=== PATIENT | female | born 1965 | race Caucasian/White ===

== ENCOUNTER → 2017-02-24 | Outpatient (CLI) | payer OTHER | LOC: FIMAGING 13:52 | PROVIDERS: ATTEND Family Medicine | DX: Z12.31 Encounter for screening mammogram for malignant neoplasm of breast (principal) | CPT/HCPCS: G0202 ==

== ENCOUNTER → 2017-12-29 | Outpatient (CLI) | payer OTHER | LOC: FIMAGING 15:02 | PROVIDERS: ATTEND Obstetrics & Gynecology Gynecology | DX: T83.39XA Other mechanical complication of intrauterine contraceptive device, initial encounter (principal); D25.0 Submucous leiomyoma of uterus; N83.201 Unspecified ovarian cyst, right side; N83.02 Follicular cyst of left ovary ==

== ENCOUNTER 2018-02-08 05:40 | Observation (INO) | payer OTHER ==
[2018-02-08] MEDS ORDERED: LIDOCAINE 1% 2 ML INJ ID PRN (05:42)
[2018-02-08] MEDS ORDERED: LR 1,000 ML IV ONE (05:42)
[2018-02-08] MEDS ORDERED: ceFAZolin 2 GM/DEXTROSE 100 ML IV ONE (06:00)
[2018-02-08] MEDS ORDERED: VASOPRESSIN 20 UNIT/ML VIAL ONE (06:51)
[2018-02-08] MEDS ORDERED: morphINE PF 5 MG/10 ML INJ ONE (07:00)
[2018-02-08] MEDS ORDERED: fentaNYL 100 MCG/2 ML INJ ONE ×3 (07:01→10:06)
[2018-02-08] MEDS ORDERED: DEXAMETHASONE 4 MG/ML VIAL ONE (07:02)
[2018-02-08] MEDS ORDERED: ONDANSETRON 4 MG/2 ML VIAL ONE ×2 (07:02→07:09)
[2018-02-08] MEDS ORDERED: PROPOFOL 200 MG/20 ML VIAL ONE (07:02)
[2018-02-08] MEDS ORDERED: LIDOCAINE 2% 5 ML SDV ONE (07:08)
[2018-02-08] MEDS ORDERED: KETOROLAC 30 MG/1 ML SDV ONE (07:09)
[2018-02-08] MEDS ORDERED: MIDAZOLAM 2 MG/2 ML VIAL IVP ONE (07:16)
[2018-02-08] MEDS ORDERED: MIDAZOLAM 2 MG/2 ML VIAL ONE (07:17)
--- NOTE | 2018-02-08 07:18 | PDANEPAE ---
ANE History of Present Illness vag hysterectomy ANE Past Medical History - Cardiovascular History Hx Hypertension: No Hx Arrhythmias: No Hx Chest Pain: No Hx Coronary Artery / Peripheral Vascular Disease: No Hx CHF / Valvular Disease: No Hx Palpitations: No - Pulmonary History Hx COPD: No Hx Asthma/Reactive Airway Disease: No Hx Recent Upper Respiratory Infection: No Hx Oxygen in Use at Home: No Hx Sleep Apnea: No Sleep Apnea Screening Result - Last Documented: Negative - Neurologic History Hx Cerebrovascular Accident: No Hx Seizures: No Hx Dementia: No - Endocrine History Hx Diabetes: No Endocrine History Comment: HYPOTHYROID - Renal History Hx Renal Disorders: No - Liver History Hx Hepatic Disorders: No - Neurological & Psychiatric Hx Hx Neurological and Psychiatric Disorders: No - Cancer History Hx Cancer: No - Congenital Disorder History Hx Congenital Disorders: No - GI History Hx Gastrointestinal Disorders: No - Other Health History Other Health History: UTERINE FIBROIDS/CYST. MENORRHAGIA. ANEMIA - Chronic Pain History Chronic Pain: No - Surgical History Prior Surgeries: APPENDECTOMY. CASANDRA TUBAL LIGATION. REMVL OVARIAN CYST. C- SECTION. RT BREAST LUMPECTOMY ANE Review of Systems Review of Systems: - Exercise capacity METS (RN): 6 METS ANE Patient History - Allergies Allergies/Adverse Reactions: No Known Allergies Allergy (Unverified 01/11/18 13:34) - Home Medications Home medications: home medication list seen and reviewed Home Medications: Levothyroxine [Synthroid 100 mcg (*)] 100 mcg PO DAILY06 01/11/18 [Last Taken 05:00] - NPO status NPO Since - Liquids (Date): 02/07/18 NPO Since - Liquids (Time): 19:00 NPO Since - Solids (Date): 02/07/18 NPO Since - Solids (Time): 17:00 - Anes Hx Anes Hx: no prior problems - Smoking Hx Smoking Status: Never smoked ANE Labs/Vital Signs - Vital Signs Blood Pressure: 125/82 Heart Rate: 48 Respiratory Rate: 18 O2 Sat (%): 98 Height: 177.8 cm Weight: 61.689 kg ANE Physical Exam - Airway Neck exam: FROM Mallampati Score: Class 1 Mouth exam: normal dental/mouth exam - Pulmonary Pulmonary: no respiratory distress - Cardiovascular Cardiovascular: regular rate and rhythym - ASA Status ASA Status: II ANE Anesthesia Plan Anesthesia Plan: GA w LMA, spinal Regional Anesthesia: POPC/PSR
--- NOTE | 2018-02-08 07:35 | PDHPUP ---
History & Physical Update H&P update statement: This history and physical update is based on an assessment of the patient which was completed after admission or registration (within 24 hours), but prior to the surgery/procedure. H&P update: no change in patient's condition since H&P completed
--- NOTE | 2018-02-08 08:29 | POSTANESTH ---
Post Anesthetic Evaluation Cardiovascular Status: Normal, Stable Respiratory Status: Normal, Stable Level of Consciousness/Mental Status: Can Participate in Eval, Moderately Sleepy Pain Control: Adequate, Prn Tx Ordered Nausea/Vomiting Control: Adequate, Prn Tx Ordered Complications Possibly Related to Anesthesia: None Noted
[2018-02-08] MEDS ORDERED: ACETAMINOPHEN 500 MG TAB PO PRN (09:19)
[2018-02-08] MEDS ORDERED: ONDANSETRON 4 MG/2 ML VIAL IVP PRN ×2 (09:19→11:17)
[2018-02-08] MEDS ORDERED: PROMETHAZINE HCL 25 MG/ML INJ IVP PRN (09:19)
[2018-02-08] MEDS ORDERED: LR 500 ML IV PRN (09:19)
[2018-02-08] MEDS ORDERED: ALBUTEROL 3 ML DEYVIAL IH PRN (09:19)
[2018-02-08] MEDS ORDERED: LABETALOL HCL 5 MG/ML 20 ML MDV IVP PRN (09:19)
[2018-02-08] MEDS ORDERED: oxyCODONE IR 5 MG TAB PO PRN (09:19)
[2018-02-08] MEDS ORDERED: NALOXONE HCL 0.4 MG/ML INJ IVP PRN (09:19)
[2018-02-08] MEDS ORDERED: METOCLOPRAMIDE 10 MG/2 ML VIAL IVP PRN (09:19)
[2018-02-08] MEDS: fentaNYL 100 MCG/2 ML INJ IVP PRN ×3 (10:09→10:50)
[2018-02-08] MEDS ORDERED: HYDROCODONE/APAP 5/325 TAB ONE ×2 (10:50→11:38)
[2018-02-08] MEDS: HYDROCODONE/APAP 5/325 TAB PO PRN ×2 (10:52→11:40)
--- NOTE | 2018-02-08 11:16 | POSTOPPROG ---
Post Op Note Date of Operation: 02/08/18 Surgeon: Alexandra Hodges Roll Forming Supervisor: Pancho Gracia Anesthesiologist: John Angeles Anesthesia: LMA, Spinal Pre-op Diagnosis: DUB/ Fibroids Post-op Diagnosis: same Indication: bleeding issues Procedure: TVH/BSO Findings: enlarged uterus , ovarian cyst on left ovary Inf/Abcess present in the surg proc area at time of surgery?: No EBL: 100-500 Complications: none
[2018-02-08] MEDS ORDERED: HYDROCODONE/APAP 5/325 TAB PO PRN (11:17)
[2018-02-08] MEDS: LR 1,000 ML IV SCH ×2 (12:38→22:28)
--- NOTE | 2018-02-09 01:39 | GOP ---
[f rep st] OPERATIVE REPORT DATE OF OPERATION: 02/08/2018 SURGEON: Alexandra Hodges MD WEALTH MANAGEMENT MANAGER: Pancho Senior, [facility]. ANESTHESIA: Spinal with Duramorph and fentanyl; general with LMA. PREOPERATIVE DIAGNOSIS: Menorrhagia, 2 large submucosal fibroids. POSTOPERATIVE DIAGNOSIS: Menorrhagia, 2 large submucosal fibroids. PROCEDURE PERFORMED: Total vaginal hysterectomy with bilateral salpingo-oophorectomy. FINDINGS: Moderate-sized uterus, normal cervix, normal-appearing ovaries. ESTIMATED BLOOD LOSS: 350 cc. DESCRIPTION OF PROCEDURE: With informed consent signed, patient was taken to the operating room and placed under spinal then general anesthesia. She was placed in the high dorsal lithotomy position an d prepped and draped in the usual sterile fashion. Langley catheter placed. A weighted speculum was p laced in the posterior vagina. Tooth tenaculum placed on the cervix for traction. Posterior colpoto my was performed, entering the posterior cul-de-sac and a baseball stitch lining the perineum with th e vaginal mucosa then with an 0 Vicryl in a running locking suture. Next, the left uterosacral ligam ent was clamped, cut, and suture ligated. The left cardinal ligament was clamped, cut, and suture li gated. The same was done on the right. Successive bites up the broad ligament as there was quite a bit of scarring, and there was some difficulty with mobility but Zambrano scissors and then 2- 0 Vicryl for suturing until the anterior peritoneal compartment entered sharply, being very careful t o not enter near where the bladder was. Once the anterior peritoneum was entered, the anterior and p osterior leaves of the broad ligament were clamped, cut, and suture ligated and then the utero-ovaria n ligaments were clamped on each side, cut, and suture ligated. The uterus and cervix were handed of f for specimen. Attention was turned to the right side of the pelvis, and the right ovary and fallop manuel tube were identified. Malena clamp crossed the infundibulopelvic ligament. The ovary and fallop manuel tube were handed off and then the pedicle was free tied and suture ligated. Hemostasis was noted . The same was done on the left. There was some difficulty finding the left ovary, but it was event ually found and Malena clamped, cut, and then free tied and suture ligated. The pedicle was hemostat ic. There was some bleeding from the vaginal cuff while we were making sure that the other pedicles were hemostatic and then the vaginal cuff was closed with [id number] sutures, and hemostasis occ urred at the end of the procedure when the last suture was placed. The patient was placed in supine position and awakened in the operating room, taken to recovery room in stable condition, tolerating t he procedure well. INDICATIONS FOR PROCEDURE: Patient is a 52-year-old, G1, P3, history of for triplets, who presented to our office with very heavy periods and an IUD that was perforated through the cervix. T his is her 2nd IUD. The IUD was removed and then the ultrasound sonohysterogram showed a 2 cm submuc osal fibroid, likely causing her IUDs to be pushed out of the cervix. We recommended hysteroscopic r esection of the fibroid, and patient desires definitive treatment, which is a vaginal hysterectomy, a nd decided to go with the latter. We also discussed removing her ovaries and as she is moving into m enopause desires to have them removed if they are reachable vaginally. COMPLICATIONS: None. /[id number]/MODL
--- NOTE | 2018-02-09 09:56 | SOAPPROG ---
SOAP Progress Note Assessment/Plan: Assessment: 52F POD 1 s/p vaginal hysterectomy and spinal duramorph for POPC with ongoing nausea and dizziness but excellent analgesia. Symptoms are likely 2/2 spinal morphine and these should begin to resolve after 24h. Plan: Dispo per primary team. Pain well controlled. Nausea control with zofran and scopolamine patch. 02/09/18 09:52 Subjective: Reports nausea and dizziness since postop. Denies pain; has not required additional analgesics. Denies fevers, chills, headache, paresthesias, weakness. Objective: Vital Signs Temp Pulse Resp BP Pulse Ox 36.9 C 51 L 16 117/69 96 02/09/18 07:57 02/09/18 07:57 02/09/18 07:57 02/09/18 07:57 02/09/18 07:57 Laboratory Results 02/09/18 05:14 02/08/18 02/09/18 02/10/18 05:59 05:59 05:59 Intake Total 6147 1441 Output Total 2125 Balance 4022 1441 Physical Exam - Physical Exam General Appearance: alert, mild distress EENT: PERRL/EOMI Respiratory: No respiratory distress Cardiac/Chest: regular rate, rhythm Neuro/Psych: no motor/sensory deficits, alert, normal mood/affect, oriented x 3 ICD10 Worksheet Patient Problems: Problems Problem Status Onset Fibroid uterus Acute - ICD10 Problem Qualifiers (1) Fibroid uterus
--- NOTE | 2018-02-09 10:14 | SOAPPROG ---
SOAP Progress Note Assessment/Plan: Assessment:POD #1 , significant N/V and dizziness, isn't eating drinking water unable to ambulate, likely due to Duramorph spinal Hct appropriate for blood loss and VSS doubt any internal blood loss, Plan: will treat nausea with Zofran and scopolomine patch and will d/w her anesthesiologist , John Angeles other options, hopefully will be able to turn the corner and go home later today 02/09/18 10:11 Subjective: "feels terrible" still spinning and has Nausea and had dry heaves last night, no pain and no bleeding vaginally Objective: Vital Signs Temp Pulse Resp BP Pulse Ox 36.9 C 51 L 16 117/69 96 02/09/18 07:57 02/09/18 07:57 02/09/18 07:57 02/09/18 07:57 02/09/18 07:57 Laboratory Results 02/09/18 05:14 02/08/18 02/09/18 02/10/18 05:59 05:59 05:59 Intake Total 6147 1441 Output Total 2125 Balance 4022 1441 abdomen is soft but with exam starting vomiting , no vaginal bleeding , lungs CTA - Time Spent With Patient Time Spent With Patient: 20min with pt - Pending Discharge Pending Discharge Within 24 Hours: Yes Pending Discharge Date: 02/10/18 Pending Discharge Time: 11:00 ICD10 Worksheet Patient Problems: Problems Problem Status Onset Fibroid uterus Acute
[2018-02-09] MEDS ORDERED: SCOPOLAMINE HYDROBROMIDE 1 MG/3 DAYS PATCH TD ONE (10:30)
--- NOTE | 2018-02-09 11:09 | ASMTCASEMG ---
Living Arrangements What is your living Answers: Alone arrangement? Who do you live with? Type Of Residence What kind of residence do Answers: House you live in? Discharge Plan Comments Coordination Status Comments Notes: CM spoke w/ FRANNY Hansen regarding d/c POC. Pt had a hysterectomy. Pt will most likely d/c independent when medically stable. No therapies ordered at this time. CM available for changes. Plan: Independent Date Signed: 02/09/2018 11:08 AM Electronically Signed By:DARCY Arevalo
[2018-02-09] MEDS: IBUPROFEN 600 MG TAB PO SCH ×4 (11:55→23:46)
--- NOTE | 2018-02-09 16:42 | SOAPPROG ---
SOAP Progress Note Assessment/Plan: Assessment:POD #1 , PT cont to be nauseated and not tolerating clears, Plan: will admit and cont clears and advance diet as garrett , d/c ameena and hopefully d/c in am 02/09/18 10:11 02/09/18 16:47 Objective: Vital Signs Temp Pulse Resp BP Pulse Ox 37.4 C 54 L 16 117/63 94 02/09/18 15:51 02/09/18 15:51 02/09/18 15:51 02/09/18 15:51 02/09/18 15:51 Laboratory Results 02/09/18 05:14 02/08/18 02/09/18 02/10/18 05:59 05:59 05:59 Intake Total 3301 0991 Output Total 7993 750 Balance 4026 490 ICD10 Worksheet Patient Problems: Problems Problem Status Onset Fibroid uterus Acute
[2018-02-10] MEDS: IBUPROFEN 600 MG TAB PO SCH ×2 (00:18→07:10)
[2018-02-10 07:44] VITALS: BP 91/51
--- NOTE | 2018-02-10 09:49 | SOAPPROG ---
SOAP Progress Note Assessment/Plan: Assessment:POD #2 , pT DOING MUCH BETTER wants to go home , garrett reg diet and no bleeding and voiding well , no pain Plan: D/C home , no meds and f/u in 1 week 02/09/18 10:11 02/09/18 16:47 02/10/18 09:45 Subjective: feeling better, eating reg diet and no N/V and no bleeding Objective: lungs CTA, abd soft and pos BS , no bleeding vaginally Vital Signs Temp Pulse Resp BP Pulse Ox 37.1 C 52 L 16 91/51 L 96 02/10/18 07:42 02/10/18 07:42 02/10/18 07:42 02/10/18 07:42 02/10/18 07:42 Laboratory Results 02/09/18 05:14 02/09/18 02/10/18 02/11/18 05:59 05:59 05:59 Intake Total 7123 0519 Output Total 7464 6956 Balance 4022 51 ICD10 Worksheet Patient Problems: Problems Problem Status Onset Fibroid uterus Acute
== END 2018-02-10 10:52 | disposition home or self-care (01) ==
LOC: F3N 05:40 → F3E 07:56
PROVIDERS: ADMIT Obstetrics & Gynecology Gynecology; ATTEND Obstetrics & Gynecology Gynecology
PROC: 0UT74ZZ Resection of Bilateral Fallopian Tubes, Percutaneous Endoscopic Approach (ICD-10-PCS; principal; 2018-02-08 07:15)
PROC: 0UT24ZZ Resection of Bilateral Ovaries, Percutaneous Endoscopic Approach (ICD-10-PCS; principal; 2018-02-08 07:15)
DX: N92.0 Excessive and frequent menstruation with regular cycle (principal); D25.9 Leiomyoma of uterus, unspecified; N80.0 Endometriosis of uterus; N83.209 Unspecified ovarian cyst, unspecified side
CPT/HCPCS: 58552; G0378; J0690; J1100; J1885; J2250; J2270; J2274; J2405; J2704; J3010

== ENCOUNTER → 2018-02-20 | Outpatient (CLI) | payer OTHER ==
[~2018-02-20] MED LIST: BUPIVACAINE 0.25% 30 ML SDV ONE; DEXAMETHASONE 4 MG/ML VIAL ONE; ERTAPENEM 1 GM VIAL ONE; HYDROmorphONE/DILAUDID 1 MG/ML INJ ONE; IOPAMIDOL (ISOVUE-300) 100 ML BTL ONE; LIDOCAINE 2% 100 MG/5 ML SYR ONE; METOCLOPRAMIDE 10 MG/2 ML VIAL ONE; MIDAZOLAM 2 MG/2 ML VIAL ONE; PROPOFOL 200 MG/20 ML VIAL ONE; ROCURONIUM 50 MG/5 ML VIAL ONE; SUGAMMADEX SODIUM 200 MG/2 ML VIAL IVP ONE; fentaNYL 100 MCG/2 ML INJ ONE
== END ==
LOC: FIMAGING 14:42
PROVIDERS: ATTEND Physician Assistant Medical
DX: R10.32 Left lower quadrant pain (principal); R93.3 Abnormal findings on diagnostic imaging of other parts of digestive tract; Z90.710 Acquired absence of both cervix and uterus; Z98.890 Other specified postprocedural states
CPT/HCPCS: J1100; J1170; J1335; J2001; J2250; J2704; J2765; J3010; Q9967

== ENCOUNTER 2018-02-21 14:46 | Inpatient (IN) | payer OTHER ==
[2018-02-21] MEDS ORDERED: NS 1,000 ML IV SCH (14:55)
--- NOTE | 2018-02-21 22:32 | GHP ---
[f rep st] HISTORY AND PHYSICAL REFERRING PHYSICIAN: Alexandra Hodges MD CHIEF COMPLAINT: Abdominal pain. HISTORY OF PRESENT ILLNESS: This is a 52-year-old female with a history of hypothyroid, presenting after a total hysterectomy on February 08, 2018. She was doing well overall until recently on Tuesday morning. This past Tuesday night was the last time she had a bowel movement and also the last time she passed gas. On Tuesday evening, she vomited 1 time in the evening. On Tuesday, she also vomited and she took an ibuprofen for the pain, but it did not help. This morning, she vomited as well. This afternoon around 2 p.m., she ate 2 slices of toast. When she presented to the hospital today, she was diaphoretic and tearful. The patient is overall in good health and is very fit. When she had a hysterectomy about 2 weeks ago, she had about 300 cc of blood loss. She is bloated. ALLERGIES: She is allergic to morphine. SURGICAL HISTORY: Total hysterectomy on February 08, 2018. many years ago and ovarian cyst removed many years ago. SOCIAL HISTORY: She lives alone. She does not work. She does not drink and she does not smoke. PAST MEDICAL HISTORY: Includes hypothyroidism. FAMILY HISTORY: Noncontributory. REVIEW OF SYSTEMS: All review of systems negative other than stated in HPI. PHYSICAL EXAMINATION: GENERAL: The patient is very uncomfortable in bed. She is awake, alert, and oriented. She is tearful. HEENT: Pupils equal and round , reactive. CARDIAC: Normal rhythm. RESPIRATORY: No increased work of breathing. ABDOMEN: She is distended. Her abdomen is soft. She is diffusely tender in the lower left and lower right quadrant, but she has the greatest pain in her lower left quadrant. She is tender to palpation of the lower left quadrant and she shows peritoneal signs. She is tender to percussion on the lower left quadrant as well. NEURO: Cranial nerves 2-12 grossly intact. PSYCH : Appropriate mood and affect. ASSESSMENT: A 52-year-old woman status post hysterectomy, now with peritoneal signs. I personally reviewed her CT scan, and there is fluid above the pelvis. However, most concerning was her extreme tenderness to even minor percussion on physical exam. Due to her physical exam findings, I am taking her to the operating room for diagnostic laparoscopy, possible laparotomy. It is concerning to me with her exam, and we discussed possible laparotomy and possible bowel resection. I am unsure of the etiology at this time, but I think that going to the operating room is prudent to make sure that there is not something more dangerous that could escalate into a life-threatening situation. She will receive [employer] electrification adviser to the OR. /[id number]/MODL MTDD
[2018-02-21] MEDS ORDERED: HYDROmorphONE/DILAUDID 1 MG/ML INJ ONE (23:08)
[2018-02-21] MEDS ORDERED: KETOROLAC 15 MG/1 ML SDV ONE (23:12)
[2018-02-22] MEDS ORDERED: HYDROmorphONE/DILAUDID 1 MG/ML INJ ONE (03:37)
[2018-02-22 05:43] LABS: PLATELET COUNT 258 10^3/uL (150-400)
[2018-02-22] MEDS: KETOROLAC 15 MG/1 ML SDV IVP SCH ×4 (06:33→23:07)
[2018-02-22] MEDS ORDERED: ONDANSETRON 4 MG/2 ML VIAL IVP PRN (07:30)
[2018-02-22] MEDS: HYDROmorphone HCL/NS 0.5 MG/ML SYR IVP PRN ×4 (08:45→22:15)
[2018-02-22] MEDS: ACETAMINOPHEN 500 MG TAB PO PRN (08:46)
[2018-02-22] MEDS: ACETAMINOPHEN 500 MG TAB PO SCH (09:53)
[2018-02-22] MEDS ORDERED: ALTEPLASE 2 MG VIAL IVP PRN (10:03)
[2018-02-22] MEDS ORDERED: D10W 1,000 ML IV PRN (10:06)
--- NOTE | 2018-02-22 10:22 | SOAPPROG ---
SOAP Progress Note Assessment/Plan: Assessment: Status post small bowel resection, POD #1. Musculoskeletal: Ambulate 3-4 times daily. Neuro: Continue Tylenol 500 mg prn pain for her headache and Dilaudid .2 mg IVP q4 hours prn pain. Respiratory: Continue with incentive spirometer. Cardiac: Monitor for hemodynamic instability. Gastrointestinal: Awaiting bowel function to return FEN: Continue with IV fluids at 100 cc per hour. Start TPN and PICC line. Patient may eat hard candy or ice chips until bowel function has returned. Genitourinary: Langley out today. Heme/ ID: Repeat CBC in AM DVT prophylaxis: SCDs on Disposition: Continue with hospital management. S: She has a headache. And her pain is controlled with Dilaudid and Tylenol. She has not passed any stool or gas. She has not heard gurgling from her stomach and she feels bloated. She is requesting to have some ice chips. O: General: Very pleasant, lying in bed with ice pack on forehead. Somewhat uncomfortable appearing. Cardiac: Regular rhythm. Pulmonary: No increased work of breathing. Gastrointestinal:~ Abdomen is soft, bowel sounds present, mild distention. Incision site is clean dry and intact, with no signs of infection. Genitourinary: Richa colored urine in Langley with good urine output. Plan: 02/22/18 10:21 02/22/18 10:22 02/25/18 06:34 Objective: Vital Signs Temp Pulse Resp BP Pulse Ox 37.1 C 12 L 14 107/85 H 95 02/22/18 07:58 02/22/18 07:58 02/22/18 07:58 02/22/18 07:58 02/22/18 07:58 Laboratory Results 02/22/18 06:00 02/22/18 06:00 02/21/18 02/22/18 02/23/18 05:59 05:59 05:59 Output Total 250 Balance -250 ICD10 Worksheet Patient Problems: Problems Problem Status Onset Fibroid uterus Acute
--- NOTE | 2018-02-22 11:47 | PDMN ---
Medical Necessity Medical necessity: [facility] [place]250 bowel surgery- small intestine resection 4-5 days : expl. lap with small bowel resection
--- NOTE | 2018-02-22 12:15 | ASMTCMCOM ---
CM Note CM Note Notes: Patient is POD #1 small bowel resection. Patient is normally independent. Her daughters are home for the summer and can help out, although they will be out of town until 02/26. Patient will be in the hospital until bowel function returns and she can tolerate a diet. She is not feeling well now, but I anticipate she'll make a fast recovery. If she needs supervision/help at home before her daughters return, she can ask friends. Case Management will check in with her closer to discharge to assess her needs. Date Signed: 02/22/2018 12:14 PM Electronically Signed By:Cara Villatoro RN
[2018-02-22 13:21] LABS: PLATELET COUNT 245 10^3/uL (150-400)
[2018-02-22 13:30] LABS: INR 1.25 (0.83-1.16); PROTIME(PATIENT) 15.9 SEC (12.0-15.0)
--- NOTE | 2018-02-22 14:35 | SOAPPROG ---
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 , doing ok and glad that her abd pain and bloating is dx and rx, awaiting central line placement today , had more questions about the surgery Plan: will cont to follow 02/22/18 14:31 Subjective: having moderate pain, no n/v Objective: Vital Signs Temp Pulse Resp BP Pulse Ox 36.6 C 62 14 99/63 L 96 02/22/18 11:14 02/22/18 11:14 02/22/18 11:14 02/22/18 11:14 02/22/18 11:14 Microbiology 02/21/18 18:00 Gram Stain - Final Peritoneal Fluid - Aspirate Laboratory Results 02/22/18 13:11 02/22/18 13:11 02/21/18 02/22/18 02/23/18 05:59 05:59 05:59 Output Total 250 250 Balance -250 -250 PT 15.9 SEC (12.0-15.0) H 02/22/18 13:11 INR 1.25 (0.83-1.16) H 02/22/18 13:11 ICD10 Worksheet Patient Problems: Problems Problem Status Onset Fibroid uterus Acute
[2018-02-22] MEDS: TPN W/ FAMOTIDINE 1 EA BAG IV SCH (21:33)
[2018-02-22] MEDS: NS 1,000 ML IV SCH (22:15)
[2018-02-23] MEDS: HYDROmorphone HCL/NS 0.5 MG/ML SYR IVP PRN ×4 (03:51→21:12)
[2018-02-23] MEDS: KETOROLAC 15 MG/1 ML SDV IVP SCH ×3 (06:24→17:37)
[2018-02-23 07:14] LABS: PLATELET COUNT 208 10^3/uL (150-400)
[2018-02-23 07:28] LABS: INR 1.2 (0.83-1.16); PROTIME(PATIENT) 15.4 SEC (12.0-15.0)
--- NOTE | 2018-02-23 10:32 | SOAPPROG ---
SOAP Progress Note Assessment/Plan: Assessment: This is a 52 year old female s/p small bowel resection, POD#2. Musculoskeletal: Ambulate 3-4 times daily. Neuro: Continue Tylenol 500 mg prn pain for her headache and Dilaudid .2 mg IVP q4 hours prn pain. Respiratory: Continue with incentive spirometer. Cardiac: Monitor for hemodynamic instability. Gastrointestinal: Keep Total fluids (IVF + TPN) 100 cc per hour. Patient may eat hard candy or ice chips until bowel function has returned. Monitor incision site for signs of infection Genitourinary: Monitor ins and outs DVT prophylaxis: SCDs on Disposition: Continue with hospital management. S: She still has a headache. She took Tylenol 500 mg yesterday but it did not improve her headache. She has not passed any stool or gas. She has not heard gurgling from her stomach and she feels bloated. She woke up at 3 AM this morning and was feeling much more energized, although now she is feeling fatigued again. She has been ambulating 3 times daily. O: Labs: White count stable. RBC, Hgb, and Hct low. General: Very pleasant, lying in bed with ice pack on forehead. Somewhat uncomfortable appearing. Cardiac: Regular rhythm. Pulmonary: No increased work of breathing. Gastrointestinal: Abdomen is soft, bowel sounds present, mild distention. Incision site is clean dry and intact, with no signs of infection. Genitourinary: Richa colored urine in Langley with good urine output. Plan: 02/22/18 10:21 02/22/18 10:22 02/23/18 10:26 Objective: Vital Signs Temp Pulse Resp BP Pulse Ox 36.7 C 53 L 12 96/68 L 96 02/23/18 07:31 02/23/18 07:31 02/23/18 07:31 02/23/18 07:31 02/23/18 07:31 Microbiology 02/21/18 18:00 Gram Stain - Final Peritoneal Fluid - Aspirate Laboratory Results 02/23/18 06:40 02/23/18 06:40 02/22/18 02/23/18 02/24/18 05:59 05:59 05:59 Intake Total 200 Output Total 250 700 Balance -250 -500 PT 15.4 SEC (12.0-15.0) H 02/23/18 06:40 INR 1.20 (0.83-1.16) H 02/23/18 06:40 ICD10 Worksheet Patient Problems: Problems Problem Status Onset Fibroid uterus Acute
[2018-02-23] MEDS ORDERED: LEVOTHYROXINE 100 MCG TAB PO SCH (12:15)
[2018-02-23] MEDS: LEVOTHYROXINE 100 MCG TAB PO SCH (15:04)
[2018-02-23] MEDS: NS 1,000 ML IV SCH (17:37)
[2018-02-23] MEDS: TPN W/ FAMOTIDINE 1 EA BAG IV SCH (21:12)
[2018-02-24] MEDS: KETOROLAC 15 MG/1 ML SDV IVP SCH ×5 (00:11→23:59)
[2018-02-24] MEDS: LEVOTHYROXINE 100 MCG TAB PO SCH (05:41)
[2018-02-24 06:02] LABS: INR 1.07 (0.83-1.16); PROTIME(PATIENT) 14.1 SEC (12.0-15.0)
--- NOTE | 2018-02-24 10:11 | SOAPPROG ---
SOAP Progress Note Assessment/Plan: Assessment: This is a 52 year old female s/p small bowel resection, POD#3. Musculoskeletal: Ambulate 3-4 times daily. Neuro: Continue Tylenol 500 mg every 6 hours prn pain for her headache and Dilaudid .2 mg IVP q4 hours prn pain. Respiratory: Continue with incentive spirometer. Cardiac: Monitor for hemodynamic instability. Gastrointestinal: Keep Total fluids (IVF + TPN) 100 cc per hour. Start on clear liquids as tolerated, no more than 8 oz per 8 hours. Monitor incision site for signs of infection Genitourinary: Monitor ins and outs DVT prophylaxis: SCDs on Disposition: Continue with hospital management. S: Patient is ambulating and her headache has resolved. She has not taken a tylenol since yesterday AM. She has been urinating more often. No gas or BM yet. She has pain when sitting in chair and going from sitting to standing. No pain when laying in bed. Last night she took a shower. Her stomach feels swollen. Pt is having stomach discomfort for a few seconds after she gets her IV dilaudid. O: General: Very pleasant, comfortable appearing. Cardiac: Regular rhythm. Pulmonary: No increased work of breathing. Gastrointestinal: Abdomen is soft, bowel sounds hypoactive, mild distention. Incision site is clean dry and intact, with no signs of infection. Plan: 02/22/18 10:21 02/22/18 10:22 02/23/18 10:26 02/24/18 10:06 02/24/18 20:20 Objective: Vital Signs Temp Pulse Resp BP Pulse Ox 36.8 C 52 L 16 130/89 H 97 02/24/18 08:00 02/24/18 08:00 02/24/18 08:00 02/24/18 08:00 02/24/18 08:00 Microbiology 02/21/18 18:00 Gram Stain - Final Peritoneal Fluid - Aspirate Laboratory Results 02/23/18 06:40 02/24/18 05:35 02/23/18 02/24/18 02/25/18 05:59 05:59 05:59 Intake Total 200 4180 Output Total 700 1500 Balance -500 2680 PT 14.1 SEC (12.0-15.0) 02/24/18 05:35 INR 1.07 (0.83-1.16) 02/24/18 05:35 ICD10 Worksheet Patient Problems: Problems Problem Status Onset Fibroid uterus Acute
[2018-02-24] MEDS: NS 1,000 ML IV SCH (17:43)
[2018-02-24] MEDS: TPN W/ FAMOTIDINE 1 EA BAG IV SCH (21:47)
[2018-02-24] MEDS: HYDROmorphone HCL/NS 0.5 MG/ML SYR IVP PRN (21:54)
[2018-02-25] MEDS: LEVOTHYROXINE 100 MCG TAB PO SCH (05:48)
[2018-02-25] MEDS: KETOROLAC 15 MG/1 ML SDV IVP SCH ×4 (05:48→23:57)
[2018-02-25 06:12] LABS: INR 1.05 (0.83-1.16); PROTIME(PATIENT) 13.9 SEC (12.0-15.0)
--- NOTE | 2018-02-25 14:08 | ASMTCMCOM ---
CM Note CM Note Notes: Spoke w/pt, dc date uncertain. Pt is otherwise independent, has been ambulating the the hallways. She has support from her children who are home for the summer but they are in [place] for the weekend and will return Tuesday. Anticipate pt will dc home independent when medically stable. CM available for any changes. DC Plan: Independent Date Signed: 02/25/2018 02:07 PM Electronically Signed By:Uzma Ahmadi RN
--- NOTE | 2018-02-25 16:32 | SOAPPROG ---
SOAP Progress Note Assessment/Plan: Assessment: 4 days status post small bowel resection following hysterectomy/presently comfortable with positive bowel sounds and small amount of flatus Afebrile/HEENT nonicteric Chest clear Cor regular rhythm Abdomen soft, nontender with well-healing lower abdominal suprapubic scar Impressions slow resolution of ileus Plan: Clears 02/25/18 16:29 Objective: Vital Signs Temp Pulse Resp BP Pulse Ox 36.7 C 55 L 12 131/90 H 97 02/25/18 15:18 02/25/18 15:18 02/25/18 15:18 02/25/18 15:18 02/25/18 15:18 Microbiology 02/21/18 18:00 Gram Stain - Final Peritoneal Fluid - Aspirate Laboratory Results 02/23/18 06:40 02/25/18 05:55 02/24/18 02/25/18 02/26/18 05:59 05:59 05:59 Intake Total 4180 2094 Output Total 1500 4050 2200 Balance 2680 -1956 -2200 PT 13.9 SEC (12.0-15.0) 02/25/18 05:55 INR 1.05 (0.83-1.16) 02/25/18 05:55 ICD10 Worksheet Patient Problems: Problems Problem Status Onset Fibroid uterus Acute
[2018-02-25] MEDS: TPN W/ FAMOTIDINE 1 EA BAG IV SCH (22:02)
[2018-02-26] MEDS: LEVOTHYROXINE 100 MCG TAB PO SCH (05:54)
[2018-02-26] MEDS: KETOROLAC 15 MG/1 ML SDV IVP SCH ×4 (05:54→23:53)
[2018-02-26] MEDS: NS 1,000 ML IV SCH (10:16)
--- NOTE | 2018-02-26 12:30 | SOAPPROG ---
SOAP Progress Note Assessment/Plan: Assessment: 4 days status post small bowel resection following hysterectomy/presently comfortable with positive bowel sounds and small amount of flatus Afebrile/HEENT nonicteric Chest clear Cor regular rhythm Abdomen soft, nontender with well-healing lower abdominal suprapubic scar Impressions slow resolution of ileus Plan: Clears 02/25/18 16:29 02/26/18 12:29 vital signs stable/afebrile/ urine output good / wound okay/ abdomen soft nontender /positive flatus Objective: Vital Signs Temp Pulse Resp BP Pulse Ox 36.6 C 67 16 126/91 H 99 02/25/18 23:56 02/26/18 08:00 02/26/18 08:00 02/26/18 08:00 02/26/18 08:00 Laboratory Results 02/23/18 06:40 02/25/18 05:55 02/25/18 02/26/18 02/27/18 05:59 05:59 05:59 Intake Total 6439 7886 Output Total 4050 3900 Balance -1956 -1552 PT 13.9 SEC (12.0-15.0) 02/25/18 05:55 INR 1.05 (0.83-1.16) 02/25/18 05:55 ICD10 Worksheet Patient Problems: Problems Problem Status Onset Fibroid uterus Acute
[2018-02-26] MEDS: HYDROmorphone HCL/NS 0.5 MG/ML SYR IVP PRN (13:55)
--- NOTE | 2018-02-26 14:40 | SOAPPROG ---
SOAP Progress Note Assessment/Plan: Assessment: 4 days status post small bowel resection following hysterectomy/presently comfortable with positive bowel sounds and small amount of flatus Afebrile/HEENT nonicteric Chest clear Cor regular rhythm Abdomen soft, nontender with well-healing lower abdominal suprapubic scar Impressions slow resolution of ileus Plan: Clears 02/25/18 16:29 02/26/18 12:29 02/26/18 14:39 Feeling poorly with lots of abdominal pain /afebrile/ no emesis /minimal flatus / wound okay Will check 3 way and CBC 02/27/18 07:13 Objective: Vital Signs Temp Pulse Resp BP Pulse Ox 36.6 C 67 16 126/91 H 99 02/25/18 23:56 02/26/18 08:00 02/26/18 08:00 02/26/18 08:00 02/26/18 08:00 Laboratory Results 02/23/18 06:40 02/25/18 05:55 02/25/18 02/26/18 02/27/18 05:59 05:59 05:59 Intake Total 2094 2348 Output Total 4050 3900 1000 Balance -1956 -1552 -1000 PT 13.9 SEC (12.0-15.0) 02/25/18 05:55 INR 1.05 (0.83-1.16) 02/25/18 05:55 ICD10 Worksheet Patient Problems: Problems Problem Status Onset Fibroid uterus Acute
[2018-02-26 15:06] LABS: PLATELET COUNT 287 10^3/uL (150-400)
--- NOTE | 2018-02-26 17:25 | ASMTCMCOM ---
CM Note CM Note Notes: CM met with patient, d/c date still unknown, continues to be independent discharge. CM shared with RN patient would like massage on Tuesday. Currently on TPN. CM to follow. D/C Plan: Date TBD independent. Date Signed: 02/26/2018 05:24 PM Electronically Signed By:Ashli Vilchis
[2018-02-26] MEDS: TPN W/ FAMOTIDINE 1 EA BAG IV SCH (21:16)
[2018-02-27] MEDS: LEVOTHYROXINE 100 MCG TAB PO SCH (05:24)
[2018-02-27 05:41] LABS: PLATELET COUNT 273 10^3/uL (150-400)
[2018-02-27 05:59] LABS: INR 1.07 (0.83-1.16); PROTIME(PATIENT) 14.1 SEC (12.0-15.0)
[2018-02-27] MEDS ORDERED: LACTULOSE 20 GM/30 ML UDCUP PO PRN (08:24)
[2018-02-27] MEDS ORDERED: POLYETHYLENE GLYCOL 3350 17 GM PKT PO PRN (08:24)
[2018-02-27] MEDS ORDERED: BISACODYL 10 MG SUPP PR PRN (08:24)
[2018-02-27] MEDS ORDERED: IBUPROFEN 600 MG TAB PO PRN (08:50)
--- NOTE | 2018-02-27 08:54 | SOAPPROG ---
SOAP Progress Note Assessment/Plan: Assessment: Status post small bowel resection, Musculoskeletal: Ambulate 3-4 times daily. Neuro: Continue Tylenol 500 mg and Ibuprofen Gastrointestinal: Awaiting bowel function to return. Bowel protocol FEN: TPN. Clears. May have crackers or applesauce with meds Disposition: Continue with hospital management. S: She continues to have mild frontal headache. Cramping abdominal pain is improved. Passed flatus. BM with stimulation O: General: Very pleasant, sitting in bed Cardiac: Regular rhythm. Pulmonary: CTAB Gastrointestinal: BS present. soft, non distended. Incisions cdi Plan: 02/22/18 10:21 02/22/18 10:22 02/25/18 06:34 02/27/18 08:52 Objective: Vital Signs Temp Pulse Resp BP Pulse Ox 36.7 C 61 16 106/69 96 02/26/18 23:23 02/26/18 23:23 02/26/18 23:23 02/26/18 23:23 02/26/18 23:23 Laboratory Results 02/27/18 05:30 02/27/18 05:30 02/26/18 02/27/18 02/28/18 05:59 05:59 05:59 Intake Total 2348 2310 Output Total 3900 1999 Balance -1552 310 PT 14.1 SEC (12.0-15.0) 02/27/18 05:30 INR 1.07 (0.83-1.16) 02/27/18 05:30 ICD10 Worksheet Patient Problems: Problems Problem Status Onset Fibroid uterus Acute
[2018-02-27] MEDS: SENNOSIDES/DOCUSATE SODIUM TAB PO SCH ×2 (09:57→21:32)
[2018-02-27] MEDS: NS 1,000 ML IV SCH (12:43)
[2018-02-27] MEDS: ACETAMINOPHEN 500 MG TAB PO PRN (18:45)
[2018-02-27] MEDS: TPN W/ FAMOTIDINE 1 EA BAG IV SCH (21:32)
[2018-02-28] MEDS: LEVOTHYROXINE 100 MCG TAB PO SCH (06:45)
[2018-02-28] MEDS: SENNOSIDES/DOCUSATE SODIUM TAB PO SCH ×2 (07:38→21:44)
--- NOTE | 2018-02-28 09:31 | SOAPPROG ---
SOAP Progress Note Assessment/Plan: Assessment: Status post small bowel resection on 02/21/2018 Ambulate 3-4 times daily. Neuro: Continue Tylenol 500 mg and Ibuprofen 600 mg q 6 hours prn pain Gastrointestinal: Bowel protocol FEN: Ween TPN to off. Regular diet as tolerated. Disposition: Continue with hospital management. S: Frontal headache and cramping abdominal pain is improved. BM with stimulation only. She has not passed flatus O: General: Very pleasant, sitting upright in bed Cardiac: Regular rhythm. Pulmonary: CTAB Gastrointestinal: BS present. soft, non distended. Incisions cdi Plan: 02/22/18 10:21 02/22/18 10:22 02/25/18 06:34 02/27/18 08:52 02/28/18 09:29 03/01/18 09:41 03/24/18 07:07 Objective: Vital Signs Temp Pulse Resp BP Pulse Ox 36.6 C 53 L 16 131/87 H 98 02/28/18 07:43 02/28/18 07:43 02/28/18 07:43 02/28/18 07:43 02/28/18 07:43 Microbiology 02/21/18 18:00 Gram Stain - Final Peritoneal Fluid - Aspirate Laboratory Results 02/27/18 05:30 02/27/18 05:30 02/27/18 02/28/18 03/01/18 05:59 05:59 05:59 Intake Total 2310 1228 Output Total 19990 1400 Balance 310 -672 -1400 PT 14.1 SEC (12.0-15.0) 02/27/18 05:30 INR 1.07 (0.83-1.16) 02/27/18 05:30 ICD10 Worksheet Patient Problems: Problems Problem Status Onset Fibroid uterus Acute
[2018-02-28] MEDS: MAGNESIUM HYDROXIDE 30 ML UDCUP PO PRN (11:53)
[2018-03-01] MEDS: LEVOTHYROXINE 100 MCG TAB PO SCH (06:37)
--- NOTE | 2018-03-01 09:46 | SOAPPROG ---
SOAP Progress Note Assessment/Plan: Assessment: Status post small bowel resection on 02/21/2018 Musculoskeletal: Ambulate 3-4 times daily Neuro: Continue Tylenol 500 mg and Ibuprofen 600 mg q 6 hours prn pain Gastrointestinal: Take milk of magnesia this AM before discharge. FEN: Regular diet as tolerated. Disposition: Anticipate home this afternoon. S: Frontal headache improved. Ate tomato soup and bread for lunch yesterday and pancakes for dinner. Mild cramping after eating. BM with milk of magnesia yesterday afternoon. No BM or gas since yesterday. O: General: Very pleasant, sitting upright in bed. Cardiac: Regular rhythm. Pulmonary: CTAB Gastrointestinal: BS present. soft, non distended. Incisions cdi Plan: 02/22/18 10:21 02/22/18 10:22 02/25/18 06:34 02/27/18 08:52 02/28/18 09:29 03/01/18 09:41 03/01/18 09:41 Objective: Vital Signs Temp Pulse Resp BP Pulse Ox 36.6 C 56 L 18 113/71 96 03/01/18 07:45 03/01/18 07:45 03/01/18 07:45 03/01/18 07:45 03/01/18 07:45 Microbiology 02/21/18 18:00 Gram Stain - Final Peritoneal Fluid - Aspirate Anaerobic Culture - Final Laboratory Results 02/27/18 05:30 02/27/18 05:30 02/28/18 03/01/18 03/02/18 05:59 05:59 05:59 Intake Total 1228 2333 Output Total 1900 3900 Balance -672 -1567 PT 14.1 SEC (12.0-15.0) 02/27/18 05:30 INR 1.07 (0.83-1.16) 02/27/18 05:30 ICD10 Worksheet Patient Problems: Problems Problem Status Onset Fibroid uterus Acute
--- NOTE | 2018-03-01 10:40 | ASMTLACE ---
LACE Length of stay for Answers: 7-13 days current admission Acuity / Level of Answers: Yes Care: Did the patient have an inpatient admission? Comorbidities - select Answers: Other Notes: Hypothyroidism all that apply # of Emergency department Answers: 0 visits in the last 6 months Score: 9 Date Signed: 03/01/2018 10:39 AM Electronically Signed By:Uzma Ahmadi RN
--- NOTE | 2018-03-01 10:42 | ASMTCMCOM ---
CM Note CM Note Notes: Pt ready for discharge, has been tolerating diet and ambulating in [place] independently. Anticipate will dc home with support of children when medically stable. CM availble for any changes. DC Home: Independent Date Signed: 03/01/2018 10:41 AM Electronically Signed By:Uzma Ahmadi RN
[2018-03-01] MEDS: SENNOSIDES/DOCUSATE SODIUM TAB PO SCH (10:53)
[2018-03-01] MEDS: MAGNESIUM HYDROXIDE 30 ML UDCUP PO PRN (11:28)
--- NOTE | 2018-03-01 14:47 | GDS ---
[f rep st] DISCHARGE SUMMARY REASON FOR ADMISSION: Please see dictated H and P by Dr. Tabares for complete details. This is a 52-y ear-old female with a history of hypothyroid presenting after a total hysterectomy on February 08. Over all, she was doing okay until about 1 week after her hysterectomy surgery. She started to feel abdom inal pain, and about 10 days after her hysterectomy, she experienced nausea and vomiting. She also h ad 3 days of no bowel movement and no passing of gas. The day before she presented to the Emergency Department, she vomited and took an ibuprofen for her abdominal pain, but it did not help. She also vomited the morning that she presented to the emergency room. When she presented to the emergency de partment, she was diaphoretic and tearful. The patient is overall in good health and is fit. PRIMARY DIAGNOSIS: Small-bowel resection following hysterectomy. SECONDARY DIAGNOSIS: Hypothyroidism. HOSPITAL COURSE: On 02/21/2018, she had a CT scan showing fluid above the pelvis. She was also disp laying extreme tenderness to minor percussion on physical exam. On 02/21/2018, she had a small bowel resection. DICTATION ENDS HERE. /[id number]/MODL
--- NOTE | 2018-03-01 17:23 | GDS ---
[f rep st] DISCHARGE SUMMARY REASON FOR ADMISSION: Please see dictated H and P by Dr. Tabares for complete details. This is a 52-year-old female with a history of hypothyroidism who presented to the ED with abdominal pain after a total hysterectomy with about 300 cc of blood loss on February 08, 2018, about 1 week after the hysterectomy and procedure, she started having bowel movements and passing gas. She presented to the emergency department 3 days after that, which was about 10 days postop with diaphoresis, nausea, vomiting, abdominal distention, and abdominal pain. On exam in the emergency department, she exhibited peritoneal signs and was extremely tender to palpation and percussion on the left lower quadrant. Her CT showed fluid above the pelvis. She was sent to the OR for small bowel resection. PRIMARY DIAGNOSIS: Status post small-bowel resection. SECONDARY DIAGNOSIS: Hypothyroidism. HOSPITAL COURSE: On 02/21/2018, she had a small-bowel resection. She was started on TPN and a PICC line. She was still awaiting bowel movement or passing of gas. On February 26, 2018, her chest x-ray and abdominal x-ray showed resolution of the small bowel obstruction. On 02/28/2018, the patient had a bowel movement with stimulation by milk of magnesia. She was tolerating small amounts of food and TPN was weaned off. On 03/01/2018, patient had a bowel movement was stimulation by milk of magnesia again. She is ambulating well and has experiencing no pain. She is also eating some solid food as tolerated. PHYSICAL EXAMINATION: GENERAL: On the day of discharge, she is a pleasant female in no acute distress. LUNGS: Clear to auscultation bilaterally. No increased work of breathing. CARDIAC: Regular rate. No peripheral edema. ABDOMEN: Bowel sounds present. Abdomen is soft and nontender in all 4 quadrants. The incisions are clean, dry, and intact. SKIN: Warm and dry. MUSCULOSKELETAL: She has normal gait and normal nails. PSYCH: Mood and affect normal. NEURO: Grossly intact. DIAGNOSTIC DATA: On of discharge, H and H 10.9 and 33.8. BMP with sodium 139, potassium 4.9, chloride 110, BUN 19, creatinine 0.7, glucose 84. RESULTS PENDING: None. DISCHARGE CONDITION: She is stable. The patient is ambulating, her pain is controlled, and she is tolerating a regular diet. DISCHARGE MEDICATIONS: Acetaminophen 500 mg by mouth every 6 hours p.r.n. pain. DISCHARGE INSTRUCTIONS/FOLLOWUP: 1. Monitor incision site. Call with any signs of fever, chills, or purulent discharge. 2. Resume normal activity and diet as tolerated. 3. No heavy lifting, pushing or pulling more than 15 pounds for the first 2 weeks after discharge. 4. Follow up with Dr. Tabares in the office in 10-14 days. /[id number]/MODL MTDD
[2018-03-01 17:54] VITALS: BP 105/75
--- NOTE | 2018-03-29 21:41 | GPROG ---
[f rep st] PROGRESS NOTE POST-ANESTHESIA NOTE The patient was taken postoperatively to the recovery room in stable condition without apparent anest hetic complications. /[id number]/MODL
--- NOTE | 2018-04-05 06:43 | GOP ---
[f rep st] OPERATIVE REPORT DATE OF OPERATION: 02/22/2018 SURGEON: Laura Tabares MD ANESTHESIA: General. PREOPERATIVE DIAGNOSIS: Bowel obstruction. POSTOPERATIVE DIAGNOSIS: Bowel obstruction due to adhesions. PROCEDURE PERFORMED: Diagnostic laparoscopy, converted to laparotomy with small bowel resection and primary anastomosis. FINDINGS: Loops of small bowel adhesed in pelvis at vaginal cuff. SPECIMENS: Small bowel. ESTIMATED BLOOD LOSS: 50 cc. INDICATIONS: This patient is a 52-year-old who underwent total hysterectomy on February 08, 2018. She stopped passing flatus and did not have a bowel movement. She also had emesis. I reviewed her CT scan which showed fluid above the pelvis. However, on physical exam, she had extreme tenderness even to minor touch. DESCRIPTION OF PROCEDURE: Patient was brought into the operating room, placed supine on the table and general anesthesia was administered. Her abdomen was prepped and draped in the usual sterile fashion. Infiltrated all sites with 0.5 % Marcaine prior to making incisions. I elevated her umbilicus. I inserted the Veress needle. It passed the hanging drop test. Her abdomen insufflated easily to a pressure of 15 mmHg. I placed a 5 mm trocar in this area. I placed her in the Trendelenburg position and was able to perform some adhesiolysis. I was running her small bowel and found 2 areas that were stuck to the vaginal cuff, as well as her descending colon. Despite multiple maneuvers to try to perform this laparoscopically, it was too adhesed to perform this safely. I then made a Pfannenstiel incision to dissect down through the subcutaneous layers. I divided the fascia. I inserted an Amrit wound protector. I was able to free the colon from the vaginal cuff. There were no injuries to the colon noted. Attention was then drawn to the 2 loops of small bowel which essentially formed a closed loop obstruction at the vaginal cuff. This bowel was extremely friable. I continued to free the bowel from the cuff. I then ran the small bowel in its entirety and the area that had been adhesed to the vaginal cuff was simply not viable. I selected points of transection proximally and distally and transected it with CHRIS stapler. I then aligned the bowel on the antimesenteric borders created. I created an enterotomy in each limb to create a [id number] functional end-to-end anastomosis. I closed the enterotomy. Mesentery was closed with 3-0 Vicryl. I washed out her abdomen. I put a couple of 0 Vicryl sutures in the vaginal cuff so that bowel would not prolapse into the defect. I then performed a clean closure. Fascia closed with 0 PDS. Skin closed with 3-0 Vicryl followed by 4-0 Monocryl. Dermabond applied. She was awakened in the operating room, extubated, transferred to PACU in stable condition. /[id number]/MODL MTDD
== END 2018-03-01 18:34 | disposition home or self-care (01) | DRG 346 ==
LOC: F3E 14:46 → OBSVTOIN 14:46 → F3E 21:53
PROVIDERS: ADMIT Surgery; ATTEND Surgery
PROC: 0DJW4ZZ Inspection of Peritoneum, Percutaneous Endoscopic Approach (ICD-10-PCS; principal; 2018-02-21 17:15)
PROC: 0DB80ZX Excision of Small Intestine, Open Approach, Diagnostic (ICD-10-PCS; principal; 2018-02-21 17:15)
PROC: 02HV33Z Insertion of Infusion Device into Superior Vena Cava, Percutaneous Approach (ICD-10-PCS; 2018-02-22)
DX: K56.609 Unspecified intestinal obstruction, unspecified as to partial versus complete obstruction (principal); R51 Headache; E03.9 Hypothyroidism, unspecified; Z90.710 Acquired absence of both cervix and uterus
CPT/HCPCS: C1751; J1170; J1885

== ENCOUNTER → 2018-03-09 | Outpatient (CLI) | payer OTHER | LOC: FIMAGING 14:22 | PROVIDERS: ATTEND Family Medicine | DX: Z12.31 Encounter for screening mammogram for malignant neoplasm of breast (principal); Z80.3 Family history of malignant neoplasm of breast ==